=== PATIENT | female | born 1940 | race Caucasian/White ===

== ENCOUNTER 2016-10-20 10:26 | Emergency (ER) | payer OTHER ==
[~2016-10-20] VITALS: Ht 154.9 cm; Wt 65.8 kg
[~2016-10-20 10:26] MED LIST: ASPIRIN EC81 M1 PO; CALCIUM600 M2 PO; LEVOTHYROXINE75 MCG PO; MAGNESIUM500 M2 PO; MONTELUKAST SOD10 M1 PO; OMEGA-31000 M1 PO; PROBIOTIC1 EACH PO; VITAMIN D2000 UNI1 PO; VITAMIN E400 UNIT PO
--- NOTE | 2016-10-20 11:33 | ED GENERAL ADULT ---
History of Present Illness General Chief Complaint: General Adult Stated Complaint: SWOLLEN HAND Source: patient Exam Limitations: no limitations Allergies Coded Allergies: codeine (VOMIT 03/10/16) latex (RASH 03/10/16) Reconcile Medications Ascorbic Acid (Vitamin C) 500 MG CAPSULE.ER 1 CAP PO DAILY HEALTH SUPPLEMENT (Reported) Aspirin (Ecotrin*) 81 MG TABLET.DR 1 TAB PO DAILY HEART/BLOOD (Reported) Cholecalciferol (Vitamin D3) (Vitamin D3) 1,000 UNIT CAPSULE 1 CAP PO DAILY HEALTH SUPPLEMENT (Reported) Lactobacillus Acidophilus (Probiotic) 1 EACH CAPSULE 1 CAP PO DAILY PROBIOTIC (Reported) Levothyroxine Sodium 75 MCG TABLET 1 TAB PO DAILY THYROID (Reported) Methylprednisolone. (Medrol) 4 MG TAB.DS.PK 1 DP PO AD INFLAMMATION Montelukast Sodium 10 MG TABLET 1 TAB PO DAILY ALLERGIES (Reported) [place]-3 Fatty Acids ([place]-3) (Unknown Strength) CAPSULE (Unknown Dose) PO DAILY SUPPLEMENT (Reported) Tramadol HCl 50 MG TABLET 1 TAB PO Q6 PRN pain may cause drowsiness Vitamin E Mixed (Vitamin E) 400 UNIT CAPSULE 1 CAP PO D HEALTH SUPPLEMENT ( Reported) Triage Note: 76 Y/O FEMALE C/O 1 WEEK HISTORY R HAND PAIN AND R THUMB SWELLING. STATES SHE WAS EVAL'D BY HER DOCTOR AND HAD NEGATIVE XRAY. STATES SYMPTOMS CONTINUE, NOW WITH PAIN UP ARM. DENIES RECENT INJURY OR FALLS. NO REDNESS NOTED; SWELLING TO ANTERIOR HAND AND THUMB. Triage Nurses Notes Reviewed? yes HPI: Patient is a 76-year-old female presents complaining of right hand pain and swelling. Pain and swelling worsening over the past 1 week. Swelling began in the right thumb one week ago. Patient saw her primary doctor last week, had an x-ray of her right thumb was told that she has arthritis and placed on naproxen. No improvement with naproxen. Swelling has spread to the other fingers and into the hand. Patient having difficulty flexing her fingers and bending her thumb. Patient denies fevers, rash, trauma. (SUSAN RODARTE,SABINO) Vital Signs & Intake/Output Vital Signs & Intake/Output Vital Signs Date Time Temp Pulse Resp B/P B/P Pulse O2 O2 Flow FiO2 Mean Ox Delivery Rate 10/20 1422 97.2 98 18 168/72 98 Room Air 10/20 1219 97 Room Air 10/20 1029 96.4 118 14 177/106 97 Room Air Past History Travel History Traveled to [place] past 21 day No Medical History Any Pertinent Medical History? 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 No (SABINO LIRIANO) Review of Systems Review of Systems Constitutional: Denies: chills, fever. EENTM: Reports: no symptoms. Respiratory: Denies: cough, short of breath. Cardiovascular: Denies: chest pain. GI: Denies: abdominal pain. Musculoskeletal: Reports: see HPI. Skin: Denies: rash. Neurological/Psychological: Reports: paresthesia (occasional right upper ext). Hematologic/Endocrine: Denies: bruising, bleeding. Immunologic/Allergic: Denies: splenectomy. (SABINO LIRIANO) Physical Exam Physical Exam General Appearance: well developed/nourished, alert, awake Head: atraumatic, normal appearance Eyes: Bilateral: normal appearance. Ears, Nose, Throat: hearing grossly normal Neck: normal inspection, supple, full range of motion, no midline tenderness, no paraspinal tenderness Respiratory: no respiratory distress Cardiovascular: regular rate/rhythm Peripheral Pulses: 2+ radial (R) Back: normal inspection, normal range of motion Extremities: moderate diffuse swelling to the right thumb. Mild swelling to the second through fifth digits. No significant erythema or skin lesions. minimal active flexion of interphalange joint of the thumb. Active flexion of second through fifth digits 30-45 at the MCP, PIP, DIP joints Neurologic/Psych: no motor/sensory deficits, awake, alert, oriented x 3, normal gait, normal mood/affect Skin: intact, normal color, warm/dry Core Measures ACS in differential dx? No CVA/TIA Diagnosis: No Severe Sepsis Present: No Septic Shock Present: No (SABINO LIRIANO) Progress Differential Diagnoses I considered the following diagnoses in my evaluation of the patient: Arthritis, septic arthritis, tenosynovitis, DVT, cervical radiculopathy, gout, Lyme disease , vascular dissection Diagnostic Imaging: Viewed by Me: Radiology Read, Ultrasound. Discussed w/RAD: Radiology Read, Ultrasound. Radiology Impression: PATIENT: LUDMILA PADRON PRESENT AGE: 76 PATIENT ACCOUNT NO: [id number] : 42 LOCATION: [facility] ORDERING PHYSICIAN: SABINO RODARTE SERVICE DATE: 10/20/16 EXAM TYPE: RAD - XRY-HAND, RIGHT EXAMINATION: XR HAND, RIGHT CLINICAL INFORMATION: Right hand swelling and pain. Presumptive diagnosis: Arthritis. COMPARISON: None TECHNIQUE: PA, oblique, and lateral views of the right hand. FINDINGS: There is no fracture or dislocation. There are mild degenerative changes of the 1st MCP and IP joints. There are ysqvxyko-hx-bgrrhu degenerative changes at the 2nd DIP joint with jvuuzmia-na-asmcaf joint space narrowing and marginal osteophytes. There is mild ulnar subluxation of the 2nd distal phalanx. There are mild degenerative changes of the 3rd and 4th DIP joints. IMPRESSION: Degenerative changes involving multiple joints, most severe at the 2nd DIP joint. DICTATED BY : BELIA AMIN MD DATE/TIME DICTATED:10/20/161210 HOT STICK WORKER: POOJA DATE/TIME TRANSCRIBED:10/20/161210 CONFIDENTIAL, DO NOT COPY WITHOUT APPROPRIATE AUTHORIZATION. <Electronically signed in Other Vendor System> SIGNED BY: BELIA AMIN MD 10/20/161226, PATIENT: LUDMILA PADRON PRESENT AGE: 76 PATIENT ACCOUNT NO: [id number] : 42 LOCATION: [facility] ORDERING PHYSICIAN: ANDRY CHANDLER MD SERVICE DATE: 10/20/16 EXAM TYPE: US - US-UNILATERAL VENOUS DOPPLER EXAMINATION: US TRIPLEX UPPER EXTREMITY, RIGHT CLINICAL INFORMATION: Right hand swelling and forearm pain. COMPARISON: None. TECHNIQUE: Color-flow triplex imaging with spectral analysis and compression Doppler were performed on the right upper extremity. FINDINGS: The right internal jugular, innominate, subclavian, axillary, brachial, basilic, cephalic, radial and ulnar veins show normal flow and compressibility. No deep venous thrombosis is seen. IMPRESSION: Normal triplex scan without evidence of deep venous thrombosis involving the right upper extremity. DICTATED BY: TYRELL ANN MD DATE/TIME DICTATED:04/27/17 / 1404 HOT STICK WORKER:POOJA DATE/TIME TRANSCRIBED:10/20/16 / 1404 CONFIDENTIAL, DO NOT COPY WITHOUT APPROPRIATE AUTHORIZATION. <Electronically signed in Other Vendor System> SIGNED BY: TYRELL ANN MD 10/20/16 1410 Initial ED EKG: none (SABINO LIRIANO) Plan of Care: Orders Procedure Date/time Status URIC ACID 10/20 1131 Complete COMPREHENSIVE METABOLIC PANEL 10/20 1131 Complete CBC WITHOUT DIFFERENTIAL 10/20 1131 Complete Laboratory Tests 10/20/16 1151: Anion Gap 13, Estimated GFR > 60, BUN/Creatinine Ratio 18.6, Glucose 100 H, Uric Acid 5.1, Calcium 9.9, Total Bilirubin 0.6, AST 24, ALT 38, Alkaline Phosphatase 99, Total Protein 8.3 H, Albumin 4.3, Globulin 4.0, Albumin/ Globulin Ratio 1.1, CBC w Diff NO MAN DIFF REQ, RBC 4.93, MCV 88.8, MCH 29.6, RDW 13.5, MPV 7.1 L, Gran % 78.8 H, Lymphocytes % 15.1 L, Monocytes % 5.4, Eosinophils % 0.4, Basophils % 0.3, Absolute Granulocytes 9.3 H, Absolute Lymphocytes 1.8, Absolute Monocytes 0.6, Absolute Eosinophils 0, Absolute Basophils 0, PUBS MCHC 33.3 Patient declined pain medication on initial exam Discussed with and seen by Dr. Chandler. Upper extremity ultrasound ordered by Dr. Chandler. If ultrasound unremarkable then plan to start patient on corticosteroids and have her follow-up with her primary care doctor. (SABINO LIRIANO) Departure Departure Time of Disposition: 1415 Disposition: HOME OR SELF CARE Condition: Stable Clinical Impression Primary Impression: Swelling of joint, hand, right Referrals: GAIL HENSON MD (PCP/Family) Additional Instructions: Elevate your hand above the level of your heart. Follow-up with your primary doctor within 1 week for recheck and further evaluation. Return to the emergency department if fevers, developing redness, pain uncontrollable, or worsening of symptoms. Departure Forms: Customer Survey General Discharge Information Prescriptions: Current Visit Scripts Methylprednisolone. (Medrol) 1 DP PO AD #1 DP Tramadol HCl 1 TAB PO Q6 PRN pain #12 TAB may cause drowsiness (SABINO LIRIANO) PA/APPLIANCE FIXER Co-Sign Statement Statement: ED Attending supervision documentation- [X] I saw and evaluated the patient. I have also reviewed all the pertinent lab results and diagnostic results. I agree with the findings and the plan of care as documented in the PA's/APPLIANCE FIXER's documentation. [] I have reviewed the ED Record and agree with the PA's/APPLIANCE FIXER's documentation. [] Additions or exceptions (if any) to the PAs/APPLIANCE FIXER's note and plan are summarized below: [] (JAMES LIMON,ANDRY Huston) Critical Care Note Critical Care Note Critical Care Time: non-applicable (SABINO LIRIANO)
[2016-10-20 12:04] LABS: ABSOLUTE BASOPHIL COUNT 0 /CUMM (0.0-0.2); ABSOLUTE EOSINOPHIL COUNT 0 /CUMM (0.0-0.7); ABSOLUTE GRANULOCYTE CT 9.3 /CUMM (1.4-6.5); ABSOLUTE LYMPH COUNT 1.8 /CUMM (1.2-3.4); ABSOLUTE MONOCYTE COUNT 0.6 /CUMM (0.10-0.60); BASOPHIL % 0.3 % (0.0-2.0); EOSINOPHIL % 0.4 % (0-5); GRANULOCYTE % 78.8 % (42.2-75.2); HEMATOCRIT 43.8 % (37-47); MEAN CORPUSCULAR HGB 29.6 PG (27.0-31.0); MEAN CORPUSCULAR HGB CONC 33.3 G/DL (33.0-37.0); MEAN CORPUSCULAR VOLUME 88.8 FL (81.0-99.0); MEAN PLATELET VOLUME 7.1 FL (7.4-10.4); PLATELET COUNT 315 /CUMM (130-400); RBC DISTRIBUTION WIDTH 13.5 % (11.5-14.5); RED BLOOD CELL CT 4.93 /CUMM (4.20-5.40); WHITE BLOOD CELL COUNT 11.8 /CUMM (4.8-10.8)
[2016-10-20] MEDS ORDERED: VITAMIN D31000 UNI1 PO (12:13)
[2016-10-20] MEDS ORDERED: VITAMIN E400 UNIT PO (12:15)
[2016-10-20] MEDS ORDERED: VITAMIN C500 M7 PO (12:16)
--- NOTE | 2016-10-20 12:27 | RADIOLOGY REPORT ---
EXAMINATION: XR HAND, RIGHT CLINICAL INFORMATION: Right hand swelling and pain. Presumptive diagnosis: Arthritis. COMPARISON: None TECHNIQUE: PA, oblique, and lateral views of the right hand. FINDINGS: There is no fracture or dislocation. There are mild degenerative changes of the 1st MCP and IP joints. There are iaadqgap-kl-gqoxfc degenerative changes at the 2nd DIP joint with sulkrysu-fj-lhhqih joint space narrowing and marginal osteophytes. There is mild ulnar subluxation of the 2nd distal phalanx. There are mild degenerative changes of the 3rd and 4th DIP joints. IMPRESSION: Degenerative changes involving multiple joints, most severe at the 2nd DIP joint.
--- NOTE | 2016-10-20 14:10 | ULTRASOUND REPORT ---
EXAMINATION: US TRIPLEX UPPER EXTREMITY, RIGHT CLINICAL INFORMATION: Right hand swelling and forearm pain. COMPARISON: None. TECHNIQUE: Color-flow triplex imaging with spectral analysis and compression Doppler were performed on the right upper extremity. FINDINGS: The right internal jugular, innominate, subclavian, axillary, brachial, basilic, cephalic, radial and ulnar veins show normal flow and compressibility. No deep venous thrombosis is seen. IMPRESSION: Normal triplex scan without evidence of deep venous thrombosis involving the right upper extremity.
[2016-10-20] MEDS ORDERED: MEDROL4 M2 PO (14:17)
[2016-10-20] MEDS ORDERED: TRAMADOL HCL50 M1 PO (14:17)
[2016-10-20 14:22] VITALS: BP 168/72
== END 2016-10-20 14:23 ==
LOC: ERH 10:26
PROVIDERS: Physician Assistant
DX: M79.89 Other specified soft tissue disorders (principal)
CPT/HCPCS: 73130-RT